=== PATIENT | female | born 1935 | race Two or more races ===

== ENCOUNTER 2020-02-21 07:59 | Emergency (ER) | payer MEDICARE, MEDICAID ==
[~2020-02-21] VITALS: Ht 162.6 cm; Wt 77.1 kg
[~2020-02-21 07:59] MED LIST: ACET-285 PO; ASPI-231 PO; CALCTAB25 PO; CETI10CH PO; ENAL20TA8 PO; FLU05NSL; LORA-622 PO; SIMV-8 PO; SITA50TA PO
[2020-02-21 10:33] LABS: Basophils # (auto) 0 10 ^3/uL (0-0.2); Basophils % (auto) 0.1 % (0.0-2.0); Eosinophils # (auto) 0 10 ^3/uL (0-0.8); Hematocrit 39.6 % (36.0-46.0); Hemoglobin 13.1 g/dL (12.2-16.2); Lymphocytes # (auto) 1.7 10 ^3/uL (0.4-5.4); Lymphocytes % (auto) 15.5 % (10.0-50.0); Mean Corpuscular Hemoglobin 29.3 pg (28.0-32.0); Mean Corpuscular Hgb Conc. 33.1 g/dL (32.0-36.0); Mean Corpuscular Volume 88.4 fL (80.0-100.0); Monocytes # (auto) 0.9 10 ^3/uL (0-1.3); Neutrophils # (auto) 8.2 10 ^3/uL (1.6-8.6); Neutrophils % (auto) 76.4 % (37.0-80.0); Platelet Count (auto) 264 10^3/uL (140-450); Red Blood Cells 4.48 10^6/uL (4.0-5.20); Red Cell Distribution Width 14.5 % (11.8-14.3); White Blood Cell 10.7 10^3/uL (4.4-10.8)
[2020-02-21 10:47] LABS: Albumin 3.7 g/dL (3.4-5.0); Anion Gap 10 (5-15); Blood Urea Nitrogen 20 mg/dL (7-18); Calcium 8.7 mg/dL (8.5-10.1); Carbon Dioxide 24 mmol/L (21-32); Chloride 100 mmol/L (98-107); Glucose 132 mg/dL (74-106); Lipase 106 U/L (73-393); Magnesium 2.4 mg/dL (1.6-2.6); Sodium 134 mmol/L (136-145)
[2020-02-21 10:54] LABS: Alanine Aminotransferase 22 U/L (13-56); Alkaline Phosphatase 64 U/L (45-117); Aspartate Aminotransferase 21 U/L (15-37); BUN/Creatinine Ratio 17.7; Bilirubin, Total 0.4 mg/dL (0.2-1.0); GFR African American 59 mL/min; GFR Non-African American 49 mL/min; Total Protein 8.1 g/dL (6.4-8.2)
[2020-02-21 11:12] VITALS: BP 102/69
[2020-02-21] MEDS ORDERED: LACTATED RINGER'S 500 ML IV ONE (12:00)
[2020-02-21] MEDS ORDERED: ONDANSETRON HCL 4 MG/2 ML VIAL IV ONE (12:00)
== END 2020-02-21 16:19 | disposition left against medical advice (07) ==
LOC: ER 07:59 → EDBD 07:59 → ER 16:19
DX: B34.9 Viral infection, unspecified (principal); R11.2 Nausea with vomiting, unspecified; E11.9 Type 2 diabetes mellitus without complications; E78.5 Hyperlipidemia, unspecified; I10 Essential (primary) hypertension; Z20.828 Contact with and (suspected) exposure to other viral communicable diseases; Z90.710 Acquired absence of both cervix and uterus
CPT/HCPCS: 36415; 71045; 80053; 83605; 83690; 83735; 83880; 84484; 85025; 87040; 87426; 93005